=== PATIENT | female | born 1975 | race African-American/Black ===

== ENCOUNTER 2021-12-16 15:15 | Emergency (ER) | payer BC, MEDICAID, SELFPAY ==
[2021-12-16] VITALS (11 sets, daily range): BP systolic 134–163; BP diastolic 86–115; PULSE 77–85; RESP 18; TEMP 36.4; O2SAT 98–100
[2021-12-16 15:56] LABS: Basophils Absolute Auto 0.1 K/mm3 (0.0-0.1); Basophils Percent Auto 0.7 % (0.2-1.2); Eosinophils Absolute Auto 0.1 K/mm3 (0-0.3); Eosinophils Percent Auto 1.7 % (0-4.4); Hemoglobin 10.8 g/dL (12.0-15.0); Immature Granulocyte Absolute 0.02 K/mm3 (0.00-0.031); Immature Granulocyte Percent A 0.3 % (0-0.5); Lymphocytes Absolute Auto 1.73 K/mm3 (0.9-3.2); Lymphocytes Percent Auto 25.1 % (18.3-44.2); Mean Corpuscular HGB Conc 30.9 g/dl (32-36); Mean Corpuscular Hemoglobin 29.4 pg (26-34); Mean Corpuscular Volume 95.4 fl (80-100); Mean Platelet Volume 9.2 fl (7.4-10.4); Monocytes Absolute Auto 0.5 K/mm3 (0.1-0.6); Monocytes Percent Auto 6.5 % (2.6-8.5); Neutrophils Absolute Auto 4.5 K/mm3 (1.3-6.7); Neutrophils Percent Auto 65.7 % (45.5-73.1); Platelet Count Result 268 k/mm3 (150-375); Red Blood Count 3.67 M/mm3 (4.2-5.4); Red Cell Distribution Width 14.7 % (11.5-14.5); White Blood Count 6.9 K/mm3 (4.5-10.0)
[2021-12-16 16:14] LABS: Alanine Aminotransferase 18 U/L (6-35); Albumin Level 3.9 g/dL (3.5-5.1); Alkaline Phosphatase 69 U/L (38-126); Anion Gap 9 mmol/L (8-16); Aspartate Amino Transferase 24 U/L (14-36); Bilirubin,Total 0.2 mg/dL (0.2-1.3); Blood Urea Nitrogen 9 mg/dL (7-17); Calcium 9.2 mg/dL (8.4-10.2); Carbon Dioxide 25 mmol/L (22-30); Chloride 103 mmol/L (98-107); Estimated CRCL calculation 40 ml/min; Estimated Glomerular Filt Rate 49; Glucose 131 mg/dL (65-110); Lipase 100 U/L (23-300); Potassium 3.9 mmol/L (3.4-5.0); Sodium 137 mmol/L (137-145)
[2021-12-16 16:17] LABS: Appearance Urine Clear (Clear); Bilirubin Urine Negative (Negative); Blood Urine Negative (Negative); Color Urine Yellow (Yellow); Glucose Urine UA Negative (Negative); Ketones Urine Negative (Negative); Leukocyte Esterase Ur Negative LEU/UL (Negative); Nitrate Urine Negative (Negative); Protein Urine 2+ mg/dL (Negative); Specific Grav Ur 1.015 (1.001-1.035); Urobilinogen Urine 0.2 mg/dL (<2.0); pH Urine 5.5 (5.0-9.0)
[2021-12-16 16:22] LABS: Mucus Urine Rare /lpf; RBC Urine 0-2 /hpf (0-2); Squamous Epithelial Cell Urine Many /hpf (Few); WBC Urine 0-3 /hpf
[2021-12-16 16:34] LABS: Add Urine Microscopic? YES
--- NOTE | 2021-12-16 17:19 | ED.ABDPAIN ---
HPI - Abdominal Pain General Chief Complaint: Abdominal Pain Stated Complaint: lower abd pain Time Seen by Provider: 12/16/21 16:13 History of Present Illness HPI narrative: Patient is a 46-year-old female who presented presents ER with lower abdominal cramping. Ongoing for 2 days. Associate with urinary frequency. No dysuria. No fevers or chills or sweats. No chest pain or chest pressure. Denies diarrhea. No vaginal discharge or bleeding. No alleviating factors. No aggravating factors. Denies concerns for STI. Review of Systems Review of Systems: All systems reviewed & are unremarkable except as noted in HPI and below Constitutional: Constitutional: Denies chills, Denies fatigue and Denies fever(s) ENT: Denies nasal congestion and Denies sore throat Cardiovascular: Cardiovascular: Denies chest pain and Denies rapid heart rate Respiratory: Respiratory: Denies cough and Denies dyspnea Gastrointestinal: Gastrointestinal: Reports abdominal pain, Denies diarrhea, Denies nausea and Denies vomiting Genitourinary: Genitourinary: Reports nocturia, Denies dysuria and Denies flank pain PMFSH Past Medical History Medical History (Updated 12/16/21 @ 18:29 by Oc Feliciano MD) Chronic kidney disease Patient unsure of stage or GFR. Hypertension Surgical History Surgical History (Updated 12/16/21 @ 18:29 by Oc Feliciano MD) History of carpal tunnel release History of section Social History Social History (Updated 12/16/21 @ 18:30 by Oc Feliciano MD) Smoking status: Never smoker Exam Narrative: GENERAL: Well-appearing, well-nourished, and in no acute distress. HEAD: Normocephalic, atraumatic. CHEST: Clear to auscultation. No respiratory distress. HEART: Regular rate and rhythm. Normal peripheral pulses. ABDOMEN: Soft, nontender, nondistended. EXTREMITIES: Normal range of motion. No edema. SKIN: Warm, dry, no rash. NEURO: Alert and oriented x3. PSYCH: Normal mood and affect. Course Course Emergency Course: Patient informed of results. Benign abdominal exam. No guardingRecommend following up with PCP regarding elevated creatinine and urine proteinPatient was reports she has been constipated which may be the cause of her issues. Vital Signs Vital signs: Vital Signs Temperature 97.6 F 12/16/21 15:30 Pulse Rate 85 12/16/21 15:30 Respiratory Rate 18 12/16/21 15:30 Blood Pressure 134/86 12/16/21 15:30 Pulse Oximetry 100 12/16/21 15:30 Oxygen Delivery Room Air 12/16/21 15:30 Temperature 97.6 F 12/16/21 15:30 Pulse Rate 85 12/16/21 15:30 Respiratory Rate 18 12/16/21 15:30 Blood Pressure 154/113 H 12/16/21 17:45 Pulse Oximetry 100 12/16/21 17:46 Oxygen Delivery Room Air 12/16/21 15:30 MDM - Abdominal Pain Lab Data Result diagrams: 12/16/21 15:49 12/16/21 15:49 Labs: Lab Results 12/16/21 12/16/21 12/16/21 Range/Units 15:49 15:49 16:01 WBC 6.9 (4.5-10.0) K/mm3 RBC 3.67 L (4.2-5.4) M/mm3 Hgb 10.8 L (12.0-15.0) g/dL Hct 35.0 L (37.0-47.0) % MCV 95.4 (80-100) fl MCH 29.4 (26-34) pg MCHC 30.9 L (32-36) g/dl RDW 14.7 H (11.5-14.5) % Plt Count 268 (150-375) k/mm3 MPV 9.2 (7.4-10.4) fl Immature Gran % (Auto) 0.3 (0-0.5) % Neut % (Auto) 65.7 (45.5-73.1) % Lymph % (Auto) 25.1 (18.3-44.2) % Tift % (Auto) 6.5 (2.6-8.5) % Eos % (Auto) 1.7 (0-4.4) % Baso % (Auto) 0.7 (0.2-1.2) % Lymph # (Auto) 1.73 (0.9-3.2) K/mm3 Tift # (Auto) 0.5 (0.1-0.6) K/mm3 Eos # (Auto) 0.1 (0-0.3) K/mm3 Baso # (Auto) 0.1 (0.0-0.1) K/mm3 Abs Immat Gran (auto) 0.02 (0.00-0.031) K/mm3 Absolute Neuts (auto) 4.5 (1.3-6.7) K/mm3 Absolute Nucleated RBC 0.0 (0.0-0.012) K/mm3 Nucleated RBC % 0.0 (0.0-0.2) % Sodium 137 (137-145) mmol/L Potassium 3.9 (3.4-5.0) mmol/L Chloride 103 (98-107) mmol/L Carbon D
== END 2021-12-16 19:07 | disposition home or self-care (01) ==
PROVIDERS: Emergency Provider Emergency Medicine; PCP Internal Medicine
DX: K59.00 Constipation, unspecified (principal); N18.9 Chronic kidney disease, unspecified; I12.9 Hypertensive chronic kidney disease with stage 1 through stage 4 chronic kidney disease, or unspecified chronic kidney disease; R79.89 Other specified abnormal findings of blood chemistry
CPT/HCPCS: 36415; 80053; 81001; 81025; 83690; 85025; 99283

== ENCOUNTER → 2022-05-15 14:20 | Outpatient (CLI) | payer BC, MEDICAID, SELFPAY ==
--- NOTE | ~2022-05-15 | MMUS_ITS ---
EXAMINATION: MM diagnostic sherry BI w tho, US breast BI limited HISTORY: History of palpable lumps at the 12:00 location of the left breast at 8:00 location right br east TECHNIQUE: Craniocaudal, mediolateral, and mediolateral oblique 3-D tomosynthesis images of the segundo ts were performed and synthetic 2-D images were generated. CAD analysis was submitted and interpreted . High resolution limited bilateral breast ultrasound was performed. COMPARISON: 03/03/2022, 12/16/2020, 11/28/2019 BREAST PARENCHYMAL COMPOSITION: The breasts are heterogeneously dense, which may obscure small masses . FINDINGS: MAMMOGRAPHIC FINDINGS: No suspicious mass, calcification, or architectural distortion are identified in either breast to sug gest malignancy. There has been no suspicious interval change. No mammographic correlate is identifie d for the reported palpable abnormality of either breast. ULTRASOUND: Right breast: No suspicious or solid mass is identified in the right breast to correlate with the pal pable abnormality of concern. Left breast: There is a 3 mm cyst at the 12:00 location 1 cm from the nipple. Also seen is a probable 6 mm x 2 mm cyst at the 12:00 location 1 cm from the nipple. IMPRESSION: 1. Probably benign sonographically detected left breast mass corresponding to the palpable abnormalit y at the 12:00 location and no mammographic or sonographic correlate identified for the reported abno rmality of the right breast. 2. Recommend 6 month follow-up targeted left breast ultrasound. BI-RADS category 3, probably benign findings. Reviewed, dictated and finalized at location A. WHEELER IMPRESSION: 1. Probably benign sonographically detected left breast mass corresponding to t he palpable abnormality at the 12:00 location and no mammographic or sonographi c correlate identified for the reported abnormality of the right breast. 2. Recommend 6 month follow-up targeted left breast ultrasound. BI-RADS category 3, probably benign findings.
== END ==
PROVIDERS: PCP Internal Medicine; Visit Provider Nurse Practitioner
DX: N64.4 Mastodynia (principal); R92.8 Other abnormal and inconclusive findings on diagnostic imaging of breast
CPT/HCPCS: 76642; 77062; 77066; G0279

== ENCOUNTER 2023-11-01 13:55 | Outpatient (CLI) | payer BC, SELFPAY ==
--- NOTE | ~2023-11-01 | MM_ITS ---
EXAMINATION: MM screening sherry BI w tho HISTORY: Screening TECHNIQUE: Craniocaudal and mediolateral oblique 3-D tomosynthesis images were obtained and synthetic 2-D images were generated. CAD analysis was submitted and interpreted. COMPARISON: Comparison to multiple prior studies sequentially, with oldest reviewed study dated 12/17. BREAST PARENCHYMAL COMPOSITION: Not dense: There are scattered areas of fibroglandular density. FINDINGS: There is no evidence of suspicious mass, calcification, or architectural distortion to sugg est malignancy in either breast. There has been no suspicious interval change. IMPRESSION: 1. No mammographic evidence of malignancy. 2. Recommend routine screening mammography in one year. BI-RADS Category 1: Negative Reviewed, dictated and finalized at location B.
== END 2023-11-01 13:56 ==
LOC: MICIMG 13:56
PROVIDERS: PCP Internal Medicine; Visit Provider Nurse Practitioner
DX: Z12.31 Encounter for screening mammogram for malignant neoplasm of breast (principal)
CPT/HCPCS: 77063; 77067

== ENCOUNTER 2024-10-21 10:59 | Outpatient (CLI) | payer BC, SELFPAY ==
[2024-10-21 11:23] LABS: Anion Gap 8 mmol/L (4-12); Blood Urea Nitrogen 15 mg/dL (7-17); Calcium 9.3 mg/dL (8.4-10.2); Carbon Dioxide 19 mmol/L (22-30); Chloride 113 mmol/L (98-107); Estimated Glomerular Filt Rate 30; Glucose 117 mg/dL (65-110); Potassium 3.6 mmol/L (3.4-5.0); Sodium 140 mmol/L (137-145)
[2024-10-21 11:28] LABS: Prothrombin Time 13.2 Seconds (11.1-14.7)
[2024-10-21 11:29] LABS: Partial Thromboplastin Time 28.7 Seconds (22.3-36.8)
== END 2024-10-21 11:00 | disposition home or self-care (01) ==
LOC: ANHLAB 11:02
PROVIDERS: PCP Internal Medicine; Visit Provider Anesthesiology
DX: Z01.812 Encounter for preprocedural laboratory examination (principal); N18.9 Chronic kidney disease, unspecified
CPT/HCPCS: 36415; 80048; 85610; 85730

== ENCOUNTER 2025-03-06 14:50 | Outpatient (CLI) | payer BC, SELFPAY ==
--- NOTE | ~2025-03-06 | MM_ITS ---
EXAMINATION: MM screening sherry BI w tho HISTORY: Screening TECHNIQUE: Craniocaudal and mediolateral oblique 3-D tomosynthesis images were obtained and synthetic 2-D images were generated. CAD analysis was submitted and interpreted. COMPARISON: Comparison to multiple prior studies sequentially, with oldest reviewed study dated 02/18/2018. BREAST PARENCHYMAL COMPOSITION: There are scattered areas of fibroglandular density. FINDINGS: There is no evidence of suspicious mass, calcification, or architectural distortion to suggest malignancy in either breast. There has been no suspicious interval change. IMPRESSION: 1. No mammographic evidence of malignancy. 2. Recommend routine screening mammography in one year. BI-RADS Category 1: Negative Reviewed, dictated and finalized at location B. [employer]
== END 2025-03-06 14:51 | disposition home or self-care (01) ==
LOC: MICIMG 14:51
PROVIDERS: PCP Internal Medicine; Visit Provider Obstetrics & Gynecology
DX: Z12.31 Encounter for screening mammogram for malignant neoplasm of breast (principal)
CPT/HCPCS: 77063; 77067